=== PATIENT | male | born 1950 | race Caucasian/White ===

== ENCOUNTER 2025-09-27 10:56 | Outpatient (CLI) | payer OTHER, SELFPAY | END 2025-09-27 10:57 | disposition home or self-care (01) | LOC: FRMREF 10:57 | PROVIDERS: PCP Family Medicine; Visit Provider Family Medicine | DX: M10.9 Gout, unspecified (principal); Z12.5 Encounter for screening for malignant neoplasm of prostate; Z00.00 Encounter for general adult medical examination without abnormal findings | CPT/HCPCS: 80053; 84550; G0103 ==

== ENCOUNTER 2025-10-26 13:00 | Outpatient (RCR) | payer OTHER, SELFPAY ==
--- NOTE | 2025-10-13 10:31 | OT.OPOE ---
OT Outpatient Ortho Eval OT Outpatient Ortho Eval* Start: 10/13/25 08:39 Freq: Status: Active Protocol: Document 10/13/25 08:40 GREYSON (Rec: 10/13/25 10:29 GREYSON [id number]) E-signed By Becky Temple, OTR/L, CLT OT OP Ortho Eval Details Complexity Complexity Medium Insurance Information Insurance Medicare B,[employer] Information Outpatient History/Precautions Current Condition/Medical Diagnosis Referring Provider Dr. Duran Beaulieu Medical Diagnoses Pain in the Left Hand, M79.642 Gout, M10.9 Treatment Diagnosis Localized Edema, R60.0 L Wrist Stiffness, M25.632 Pain in the Left Hand, M79.642 Date of Onset about 1 month ago Other Conditions PMH includes but is not limited to: Primary hypertension (Acute) I10 - Essential (primary) hypertension (ICD-10) DMII (diabetes mellitus, type 2) (Acute) E11.9 - Type 2 diabetes mellitus without complications (ICD-10) Hand pain, left (Acute) M79.642 - Pain in left hand (ICD-10) Gout (Acute) M10.9 - Gout, unspecified (ICD-10) Medications: aspirin 81 mg PO QDAY diphenhydramine-acetaminophen 25-500 mg (Tylenol PM Extra Strength) 2 tabs PO QHS PRN melatonin 10 mg PO metformin 500 mg PO DAILY multivitamin (Daily Multi-Vitamin tablet) 2 tabs PO QAM prednisone 10 mg PO DIRECTED sour ramirez extract (Tart Ramirez Extract) mg PO Medical/Functional History Medical History Yes Reviewed Prior Level of Patient and his spouse live in [facility] Function/Mobility [facility]) a [place] with a basement which he calls his man cave Patient also has a cabin up [facility] that he loves to go to and fish at. Patient is Indep with ADLs and IADLs but recently has been doing all tasks with only his R dominant UE as the L hand/wrist is swollen and painful with lacking AROM Social History Employment Status Retired Hobbies fishing, reading, wood working, playing pool Fitness [employer] in [place] and walks the indoor track, weight machines Ortho Subjective Subjective Subjective Patient was seen by his PCP on 09/27/25 and was evaluated for gout, prostate cancer, type 2 diabetes mellitus, elevated blood pressure, and essential tremors (for 25 of more years, does not take any medication for this). Patient was in urgent care 4 weeks ago due to severe swelling & pain in his L hand ( w/o known cause/no injury). Despite a history of gout, the swelling persisted even after a 2-week course of indomethacin. Upon returning to urgent care, he was prescribed prednisone, which reduced the swelling but did not eliminate it. He continues to experience pain and swelling in his L hand. He has a history of annual gout flare-ups, with the most recent episode occurring last summer in his left foot, significantly impairing his mobility. Typically, a 6-pill course of indomethacin alleviates his symptoms, but this time it was ineffective. He has a past history of a L wrist fractures, which were not fully healed according to x- rays. He has been using only one hand for all his ADL and IADL tasks due to pain/discomfort and poor AROM with his L hand. He is uncertain if his current symptoms are due to gout or arthritis. He has been taking ibuprofen 800 mg daily for his hand, which has been beneficial. He recently started using diclofenac gel and he reports some relief from this ointment. He has been using indomethacin 50 mg capsules as needed for gout flare-ups, which he finds effective. He has a history of prostate cancer, which was treated with radiation therapy. His last PSA level was undetectable, indicating he is currently cancer-free. He has type 2 diabetes, his last A1c level was below 7. He takes his metformin prescription daily (500 mg once daily). He has been monitoring his blood pressure at home for the past 10 to 12 days and has noticed some elevated readings. He was previously on hydrochlorothiazide for a short period about 3 years ago. He has not been on any other blood pressure medications. He has a history of falls, including a fall down the stairs about 5 years ago that resulted in a shoulder, cracked ribs, and back problems. He was treated with ibuprofen and physical therapy, which resolved his back issues. He has not had any falls since then. He tells me that he is a member of [employer] in [place] and does the indoor walking track, as well as the leg curl and leg press machines. He was doing some of the upper body machines but has not been able to do these for the past 4-5 weeks due to the L hand/wrist flare up . He is hopeful this will resolve soon, as it has mentally and emotionally been weighing on him and causing him to feel down. Pain Assessment Pain Pain No Pain Comments throughout the day 01/31; generally worse when he first wakes up in the morning 04/02 L hand prefers warmth, using heat, ointment and oral medication for pain Goniometric Comments Goniometric Comments Goniometric Comments R hand 60 degrees of supination, L hand only 20 degrees R hand flexion/extension 50/50 degrees, L hand 29/11 degrees Hand Pinch/Commercial Baker Helper Strength Hand Pinch/Commercial Baker Helper Strength Hand Pinch/Commercial Baker Helper Left Hand,Right Hand Strength Left Hand Commercial Baker Helper Strength 15 Position 1 in Elbow Flexion (lbs) Commercial Baker Helper Strength 18 Position 2 in Elbow Extension (lbs) Lateral Pinch 5 Strength (lbs) Three Point Pinch ( 4 lbs) Tip Pinch Strength ( 3 lbs) Right Hand Commercial Baker Helper Strength 60 Position 1 in Elbow Flexion (lbs) Commercial Baker Helper Strength 70 Position 2 in Elbow Extension (lbs) Lateral Pinch 22.5 Strength (lbs) Three Point Pinch ( 16 lbs) Tip Pinch Strength ( 9 lbs) OT Problems Problems Problems Decreased Strength,Decreased Range of Motion,Decreased Dexterity,Pain,Decreased Coordination,Lifting,Gripping, Pinching Problems Comments I won't fiber picker things in my left hand because I know I'll drop it Other Problems Opening Containers,Dressing,Sleeping Patient Potential Excellent Assessment Assessment Assessment Patient was seen by his PCP on 09/27/25 and was evaluated for gout, prostate cancer, type 2 diabetes mellitus, elevated blood pressure, and essential tremors (for 25 of more years, does not take any medication for this). Patient was in urgent care 4 weeks ago due to severe swelling & pain in his L hand ( w/o known cause/no injury). Despite a history of gout, the swelling persisted even after a 2-week course of indomethacin. Upon returning to urgent care, he was prescribed prednisone, which reduced the swelling but did not eliminate it. He continues to experience pain and swelling in his L hand. He has a history of annual gout flare-ups, with the most recent episode occurring last summer in his left foot, significantly impairing his mobility. Typically, a 6-pill course of indomethacin alleviates his symptoms, but this time it was ineffective. He has a past history of a L wrist fractures, which were not fully healed according to x- rays. He has been using only one hand for all his ADL and IADL tasks due to pain/discomfort and poor AROM with his L hand. He is uncertain if his current symptoms are due to gout or arthritis. He has been taking ibuprofen 800 mg daily for his hand, which has been beneficial. He recently started using diclofenac gel and he reports some relief from this ointment. He has been using indomethacin 50 mg capsules as needed for gout flare-ups, which he finds effective. He has a history of prostate cancer, which was treated with radiation therapy. His last PSA level was undetectable, indicating he is currently cancer-free. He has type 2 diabetes, his last A1c level was below 7. He takes his metformin prescription daily (500 mg once daily). He has been monitoring his blood pressure at home for the past 10 to 12 days and has noticed some elevated readings. He was previously on hydrochlorothiazide for a short period about 3 years ago. He has not been on any other blood pressure medications. He has a history of falls, including a fall down the stairs about 5 years ago that resulted in a shoulder, cracked ribs, and back problems. He was treated with ibuprofen and physical therapy, which resolved his back issues. He has not had any falls since then. He tells me that he is a member of [employer] in [place] and does the indoor walking track, as well as the leg curl and leg press machines. He was doing some of the upper body machines but has not been able to do these for the past 4-5 weeks due to the L hand/wrist flare up . He is hopeful this will resolve soon, as it has mentally and emotionally been weighing on him and causing him to feel down. Therapist explained what would occur in the next 2-3 treatment sessions, he was provided with an individualized HEP at our visit today and we went over this in our session. Patient was pleasant and cooperative, he is expected to make excellent progress through skilled OT. Occupational Therapy Treatment Plan - OP Potential Rehabilitation Excellent Potential Barriers Barriers to goal None Noted attainment Set Goals Goals Set with Yes Patient Goals Goals 1. After 3 treatment sessions, patient will be able to verbalize 6 adaptive strategies to protect joint integrity to have less pain with ADL/IADL & leisure activities. 2. In 6 weeks, pt will demonstrate: 1) Decreased pain to <2/10 80% of the time with sustained gripping & carrying tasks (ex: holding a coffee cup, carrying in groceries in the house, holding open a book). 3. In order to show improvement in L hand function, patient will reduce score on the Quick Dash 4. Through skilled therapy treatment, patient will gain knowledge in order to promote healing of injury through the control of inflammation in order to return hand to normal, pain free function. 5. Pt will demonstrate pain-free crimp setter and pinch strength comparable to the uninvolved side in order to improve functional grasp, hold, reach, and lifting ability needed to complete self-care, & leisure tasks. Target Date 12 Treatment Plan Treatment Plan Evaluation,Edema Control,Joint Mobilization,Manual Therapy,Ultrasound,Therapeutic Exercise,Self Care/Home Management,Education Expected Frequency 1-2x Week Expected Duration 12 Home Program Home Program Home Program Initiated Home Program Taught and trained patient on the following HEP. Specifics Provided mirrored demo for accurate technique and speed of movement. Educated patient that all exercises are done lightly through a gentle, slow, pain free AROM. Patient verbalized her understanding of this information and had successful teach back when mirroring therapists? movement. Handout (with included pictures and descriptions) was provided to patient with access code that, if he chooses to log into [employer] will show patient a video of each exercise. Access Code: [email or web address] URL: [email or web address] Date: 10/13/2025 Prepared by: Becky Temple Exercises - Seated Single Arm Bicep Curls Supinated with Dumbbell - 1 x daily - 7 x weekly - 1-2 sets - 10 reps - Wrist Flexion Extension AROM - Palms Down - 1 x daily - 7 x weekly - 1-2 sets - 10 reps - Seated Wrist Radial and Ulnar Deviation AROM - 1 x daily - 7 x weekly - 1-2 sets - 10 reps - Thumb Opposition - 1 x daily - 7 x weekly - 1-2 sets - 10 reps - Finger Spreading - 1 x daily - 7 x weekly - 1-2 sets - 10 reps - Wrist AAROM Flexion and Extension - 1 x daily - 7 x weekly - 1-2 sets - 10 reps - Forearm AAROM Supination and Pronation with Ball - 1 x daily - 7 x weekly - 1-2 sets - 10 reps - Forearm Pronation and Supination with Hammer - 1 x daily - 7 x weekly - 1-2 sets - 10 reps - Gripping Sponge Neutral - 1 x daily - 7 x weekly - 1 -2 sets - 10 reps - Resisted Finger Extension and Thumb Abduction - 1 x daily - 7 x weekly - 1-2 sets - 10 reps - 3-5 hold Certification Certification Statement I Certify That: Therapy Services Provided,Therapy Plan Established, Therapy Plan Reviewed Certification Information Clinic ID # [id number] Initial 10/13/25 Certification Date Recertification Due 01/11/26 Date Provider Signature Yes Required Provider Signature POC & Medical Necessity Shows Agreement With Physician NPI Number Write NPI# Here Physician Comment/ Comment or Changes Change Physician Signature Please Sign/Date Here & Date Requested
== END 2025-10-26 14:20 | disposition home or self-care (01) ==
PROVIDERS: PCP Family Medicine; Visit Provider Family Medicine
DX: M79.642 Pain in left hand (principal); M10.9 Gout, unspecified; Z51.89 Encounter for other specified aftercare
CPT/HCPCS: 97110; 97140; 97166; X5282